=== PATIENT | male | born 1945 | race African-American/Black ===

== ENCOUNTER 2017-09-12 20:39 | Emergency (ER) | payer MEDICARE, BC ==
[~2017-09-12] VITALS: Ht 177.8 cm; Wt 82.0 kg
[~2017-09-12 20:39] MED LIST: AMLO1TAB39 PO; ASPI-1159 PO; ATEN-42 PO; ATOR20TA65 PO; CHOL500010 PO; CLOP75TA33 PO; CYAN100069 PO; METF500T4 PO
[2017-09-13] MEDS ORDERED: TETRACAINE 0.5% OPHTH DROPS 4ML OP ONE (03:15)
[2017-09-13] MEDS ORDERED: FLUORESCEIN SODIUM 1MG/STRIP OP ONE (03:15)
[2017-09-13 04:21] VITALS: BP 145/90
== END 2017-09-13 05:56 | disposition home or self-care (01) ==
LOC: ER 22:35
DX: S05.01XA Injury of conjunctiva and corneal abrasion without foreign body, right eye, initial encounter (principal); I10 Essential (primary) hypertension; H40.9 Unspecified glaucoma; H26.9 Unspecified cataract; E78.5 Hyperlipidemia, unspecified; Z79.82 Long term (current) use of aspirin; X58.XXXA Exposure to other specified factors, initial encounter; Y93.89 Activity, other specified; Y92.89 Other specified places as the place of occurrence of the external cause; Y99.8 Other external cause status
CPT/HCPCS: 99283

== ENCOUNTER 2019-04-06 12:21 | Emergency (ER) | payer MEDICARE, BC ==
[~2019-04-06] VITALS: Ht 177.8 cm; Wt 60.0 kg
[~2019-04-06 12:21] MED LIST changes: -ASPI-1159 PO; +ASPI-1497 PO; +METF-414 PO; -METF500T4 PO
[2019-04-06] MEDS ORDERED: MINERAL OIL ENEMA 133ML PR ONE (15:00)
[2019-04-06 16:03] LABS: BASOPHILS % 0.4 % (0.0-2.0); EOSINOPHILS % 0.2 % (0.0-5.0); HEMOGLOBIN. 14.9 g/dL (14.0-18.0); LYMPHOCYTES % 7.5 % (20.0-50.0); MEAN CORPUSCULAR HEMOGLOBIN 31.4 pg (28.0-32.0); MEAN PLATELET VOLUME 8.6 fl (7.4-10.4); MONOCYTES % 4.4 % (2.0-8.0); NEUTROPHILS % 87.5 % (40.0-76.0); PLATELET 149 x1000/uL (130-400); RED BLOOD CELL COUNT 4.73 mill/uL (4.7-6.1); RED CELL DISTRIBUTION WIDTH 13.9 % (11.6-14.6)
[2019-04-06 16:10] LABS: INR 2.7; PROTHROMBIN TIME 26.2 sec (9.6-11.0)
[2019-04-06 16:12] LABS: CHLORIDE 112 mEq/L (98-107)
[2019-04-06 19:12] LABS: CLARITY URINE CLEAR (CLEAR); COLOR URINE DARK YELLOW (YELLOW); KETONES URINE NEGATIVE (NEGATIVE); LEUKOCYTE ESTERASE URINE 1+ (NEGATIVE); NITRITE URINE POSITIVE (NEGATIVE); OCCULT BLOOD URINE 1+ (NEGATIVE); PROTEIN URINE TRACE (NEGATIVE); SPECIFIC GRAVITY URINE 1.018 (1.005-1.030)
[2019-04-06 20:33] VITALS: BP 142/83
== END 2019-04-06 20:34 | disposition home or self-care (01) ==
LOC: ER 13:16
DX: K59.00 Constipation, unspecified (principal); N39.0 Urinary tract infection, site not specified; E86.0 Dehydration; E87.5 Hyperkalemia; D72.829 Elevated white blood cell count, unspecified; I25.10 Atherosclerotic heart disease of native coronary artery without angina pectoris; E11.9 Type 2 diabetes mellitus without complications; I10 Essential (primary) hypertension; H40.9 Unspecified glaucoma; H26.9 Unspecified cataract; Z79.82 Long term (current) use of aspirin
CPT/HCPCS: 36415; 74176; 80053; 81003; 85025; 99284